=== PATIENT | female | born 1995 | race American Indian/Alaskan Native ===

== ENCOUNTER 2017-05-07 14:12 | Outpatient (CLI) | payer OTHER ==
[~2017-05-07 14:12] MED LIST: PRENATAL 19 TA1 EAC1 PO
== END 2017-05-08 11:01 | disposition home or self-care (01) ==
LOC: OBS/DEL 14:12
DX: O23.43 Unspecified infection of urinary tract in pregnancy, third trimester (principal); O47.1 False labor at or after 37 completed weeks of gestation; Z34.83 Encounter for supervision of other normal pregnancy, third trimester

== ENCOUNTER 2017-05-15 16:22 | Outpatient (CLI) | payer OTHER | END 2017-05-15 16:25 | disposition home or self-care (01) | LOC: LAB 16:22 | DX: Z34.83 Encounter for supervision of other normal pregnancy, third trimester (principal); B34.9 Viral infection, unspecified ==

== ENCOUNTER 2017-05-19 00:42 | Inpatient (IN) | payer OTHER ==
[~2017-05-19] VITALS: Ht 160 cm; Wt 58.5 kg
[2017-05-19] MEDS ORDERED: ZITHROMAX200 MG PO (07:10)
== END 2017-05-21 15:55 | disposition home or self-care (01) | DRG 775 ==
LOC: OBS/DEL 00:42 → LDR 06:56 → OB/GYN 11:03
PROC: 0HQ9XZZ Repair Perineum Skin, External Approach (ICD-10-PCS; principal; 2017-05-19)
PROC: 10E0XZZ Delivery of Products of Conception, External Approach (ICD-10-PCS; 2017-05-19)
PROC: 4A1HXCZ Monitoring of Products of Conception, Cardiac Rate, External Approach (ICD-10-PCS; 2017-05-19)
DX: O70.0 First degree perineal laceration during delivery (principal); Z3A.39 39 weeks gestation of pregnancy; Z37.0 Single live birth